=== PATIENT | female | born 1945 | race Caucasian/White ===

== ENCOUNTER 2019-01-24 04:29 | Observation (INO) | payer MEDICARE, OTHER ==
[~2019-01-24] VITALS: Ht 157.5 cm; Wt 70.3 kg
[~2019-01-24 04:29] MED LIST: ASPI-1471 PO; ESTR1; ESTR42.59; FURO20TA19 PO; LEVO25TA56; LEVO75TA68; LISI-1; LUTE1CAP6; MOM PO; ROSU5TAB8 PO
--- NOTE | 2019-01-24 04:35 | ER Report ---
History and Physical Time Seen By MD: 04:33 (DES BLAKE DO) Time Seen By MD: 06:47 (DALILA WONG DO) HPI/ROS CHIEF COMPLAINT: Abdominal pain, vomiting HISTORY OF PRESENT ILLNESS: 73-year-old female presents ambulatory to the ER complaining of abdominal pain, onset 11 PM, patient notes onset of vomiting at 1 AM. She describes crampy epigastric pain without radiation. She notes no allev iating or saturating factors. She notes no diarrhea. Patient denies fever or chills. Patient denies consumption of bad food or exposure to ill contacts. Patient reports history of multiple abdominal surgeries. REVIEW OF SYSTEMS: Respiratory: No cough, no dyspnea. Cardiovascular: No chest pain, no palpitations. Gastrointestinal: As above Musculoskeletal: No back pain. (DES BLAKE DO) HPI/ROS Please see Dr. Blake's note (DALILA WONG DO) Allergies: Coded Allergies: No Known Drug Allergies (Unverified , 01/24/19) Home Meds Reported Medications Estradiol (ESTRADIOL) 1 Mg Tablet, 1 MG PO DAILY 01/24/19 Potassium Chloride (POTASSIUM CHLORIDE) 10 Meq Capsule.er, 10 MEQ PO DAILY 01/24/19 Levothyroxine Sodium (LEVOTHYROXINE SODIUM) 50 Mcg Tablet, 50 MCG PO QDAY, TAB 01/24/19 Rosuvastatin Calcium (Rosuvastatin Calcium) 5 Mg Tablet, 1 TAB PO DAILY 01/24/19 Furosemide (FUROSEMIDE) 20 Mg Tablet, 1 TAB PO DAILY, TAB 01/24/19 Calcium Carbonate (CALCIUM) 600 Mg Tablet, 600 MG PO BID 01/24/19 Aspirin (ASPIR 81) 81 Mg Tablet.dr, 81 MG PO QDAY, TAB 01/24/19 Lutein/Zeaxanthin (Lutein-Zeaxanthin 20-1 mg Sfgl) Unknown Strength Capsule 01/11/19 Discontinued Reported Medications Aspirin (ASPIR 81) Unknown Strength Tablet.dr, PO QDAY, TAB 01/11/19 Furosemide (LASIX) Unknown Strength Tablet, PO Q8H, TAB 01/11/19 Estradiol (Estrace) 12 Gm Cream.appl, qday 12/18/11 Levothyroxine Sodium (Synthroid) 75 Mcg Tablet 12/18/11 Estradiol (Estrace) 1 Mg Tab 12/18/11 Past Medical/Surgical History Past medical history hypothyroidism, aortic valve replacement 2012 with porcine valve, hyperlipidemia, estrogen replacement (DES BLAKE DO) Reviewed Nurses Notes: Yes Old Medical Records Reviewed: Yes (DES BLAKE DO) Hx Smoking: No Hx Substance Use Disorder: No Hx Alcohol Use: No (DES BLAKE DO) Constitutional Vital Sign - Last 24 Hours 01/24/19 01/24/19 01/24/19 01/24/19 04:36 04:38 04:45 04:59 Temp 97.3 Pulse 95 61 Resp 22 B/P (MAP) 183/79 183/79 (113) 139/112 (121) Pulse Ox 96 95 O2 Delivery Room Air 01/24/19 01/24/19 01/24/19 01/24/19 05:00 05:07 05:12 05:30 Pulse 71 68 B/P (MAP) 138/65 (89) 169/76 (107) Pulse Ox 90 01/24/19 01/24/19 01/24/19 01/24/19 05:42 06:00 06:05 06:22 Pulse 83 71 B/P (MAP) 143/75 (97) 162/80 (107) Pulse Ox 97 96 01/24/19 01/24/19 01/24/19 06:30 06:35 06:47 Pulse 77 78 B/P (MAP) 148/69 (95) Pulse Ox 97 Intake and Output 01/23/19 01/23/19 01/24/19 15:00 23:00 07:00 Intake Total 1000 ml Balance 1000 ml (DALILA WONG DO) Physical Exam Vital signs stable, afebrile, pulse ox normal. Blood pressure mildly elevated General Appearance: The patient is alert, has no immediate need for airway protection and no current signs of toxicity. Eyes: Pupils equal and round no injection. Respiratory: Chest is non tender, lungs are clear to auscultation. Cardiac: regular rate and rhythm Gastrointestinal: Abdomen is soft and non tender, no masses, bowel sounds normal. Musculoskeletal: Neck: Neck is supple and non tender. Extremities have full range of motion and are non tender. Skin: No rashes or lesions. DIFFERENTIAL DIAGNOSIS: After history and physical exam differential diagnosis was considered for abdominal pain including but not limited to appendicitis, cholecystitis, gastritis and urinary tract infection. (DES BLAKE DO) Physical Exam Please see Dr. Blake's note (DALILA WONG DO) Medical Decision Making Data Points Result Diagram: 01/24/19 0440 01/24/19 0440 Laboratory Hematology Test 01/24/19 04:40 01/24/19 05:20 Red Blood Count 4.99 M/uL (4.17-5.56) Mean Corpuscular Volume 92.3 fL (80.0-96.0) Mean Corpuscular Hemoglobin 31.4 pg (26.0-33.0) Mean Corpuscular Hemoglobin Concent 34.0 g/dL (32.0-36.0) Red Cell Distribution Width 12.8 % (11.5-14.5) Mean Platelet Volume 8.7 fL (7.2-11.1) Neutrophils (%) (Auto) 75.5 % (39.4-72.5) Lymphocytes (%) (Auto) 21.4 % (17.6-49.6) Monocytes (%) (Auto) 2.7 % (4.1-12.4) Eosinophils (%) (Auto) 0.1 % (0.4-6.7) Basophils (%) (Auto) 0.3 % (0.3-1.4) Nucleated RBC Relative Count (auto) 0.0 /100WBC Neutrophils # (Auto) 12.1 K/uL (2.0-7.4) Lymphocytes # (Auto) 3.4 K/uL (1.3-3.6) Monocytes # (Auto) 0.4 K/uL (0.3-1.0) Eosinophils # (Auto) 0.0 K/uL (0.0-0.5) Basophils # (Auto) 0.1 K/uL (0.0-0.1) Nucleated RBC Absolute Count (auto) 0.00 K/uL Sodium Level 137 mmol/L (137-145) Potassium Level 3.9 mmol/L (3.5-5.0) Chloride Level 98 mmol/L (98-107) Carbon Dioxide Level 23 mmol/L (22-31) Blood Urea Nitrogen 21 mg/dl (7-18) Creatinine 1.00 mg/dl (0.52-1.04) Glomerular Filtration Rate Calc 54.1 Random Glucose 181 mg/dl (75-110) Calcium Level 9.9 mg/dl (8.4-10.2) Total Bilirubin 0.5 mg/dl (0.2-1.3) Aspartate Amino Transf (AST/SGOT) 30 U/L (0-35) Alanine Aminotransferase (ALT/SGPT) 13 U/L (0-56) Alkaline Phosphatase 105 U/L (0-126) Troponin I < 0.012 ng/ml Total Protein 8.8 g/dl (6.3-8.2) Albumin 4.9 g/dl (3.5-5.0) Amylase Level 112 U/L (0-110) Lipase 59 U/L (23-300) Urine Color Yellow Urine Clarity Clear Urine pH 8.0 pH (4.8-9.5) Urine Specific [place] 1.024 Urine Protein 30 mg/dL (NEGATIVE) Urine Glucose (UA) Negative mg/dL (NEGATIVE) Urine Ketones 80 mg/dL (NEGATIVE) Urine Blood Negative (NEGATIVE) Urine Nitrite Negative (NEGATIVE) Urine Bilirubin Negative (NEGATIVE) Urine Urobilinogen 2.0 mg/dL (0.2-1.9) Urine Leukocyte Esterase Negative (NEGATIVE) Urine RBC 2 /HPF (0-2/HPF) Urine WBC <1 /HPF (0-5/HPF) Urine Squamous Epithelial Cells Many /LPF (</=FEW) Urine Bacteria Negative /HPF (NONE-FEW) Urine Mucus None /HPF (NONE-FEW) Chemistry Test 01/24/19 04:40 01/24/19 05:20 White Blood Count 16.0 k/uL (4.5-11.0) Red Blood Count 4.99 M/uL (4.17-5.56) Hemoglobin 15.7 g/dL (12.0-16.0) Hematocrit 46.1 % (34.0-47.0) Mean Corpuscular Volume 92.3 fL (80.0-96.0) Mean Corpuscular Hemoglobin 31.4 pg (26.0-33.0) Mean Corpuscular Hemoglobin Concent 34.0 g/dL (32.0-36.0) Red Cell Distribution Width 12.8 % (11.5-14.5) Platelet Count 347 K/uL (150-450) Mean Platelet Volume 8.7 fL (7.2-11.1) Neutrophils (%) (Auto) 75.5 % (39.4-72.5) Lymphocytes (%) (Auto) 21.4 % (17.6-49.6) Monocytes (%) (Auto) 2.7 % (4.1-12.4) Eosinophils (%) (Auto) 0.1 % (0.4-6.7) Basophils (%) (Auto) 0.3 % (0.3-1.4) Nucleated RBC Relative Count (auto) 0.0 /100WBC Neutrophils # (Auto) 12.1 K/uL (2.0-7.4) Lymphocytes # (Auto) 3.4 K/uL (1.3-3.6) Monocytes # (Auto) 0.4 K/uL (0.3-1.0) Eosinophils # (Auto) 0.0 K/uL (0.0-0.5) Basophils # (Auto) 0.1 K/uL (0.0-0.1) Nucleated RBC Absolute Count (auto) 0.00 K/uL Glomerular Filtration Rate Calc 54.1 Calcium Level 9.9 mg/dl (8.4-10.2) Total Bilirubin 0.5 mg/dl (0.2-1.3) Aspartate Amino Transf (AST/SGOT) 30 U/L (0-35) Alanine Aminotransferase (ALT/SGPT) 13 U/L (0-56) Alkaline Phosphatase 105 U/L (0-126) Troponin I < 0.012 ng/ml Total Protein 8.8 g/dl (6.3-8.2) Albumin 4.9 g/dl (3.5-5.0) Amylase Level 112 U/L (0-110) Lipase 59 U/L (23-300) Urine Color Yellow Urine Clarity Clear Urine pH 8.0 pH (4.8-9.5) Urine Specific [place] 1.024 Urine Protein 30 mg/dL (NEGATIVE) Urine Glucose (UA) Negative mg/dL (NEGATIVE) Urine Ketones 80 mg/dL (NEGATIVE) Urine Blood Negative (NEGATIVE) Urine Nitrite Negative (NEGATIVE) Urine Bilirubin Negative (NEGATIVE) Urine Urobilinogen 2.0 mg/dL (0.2-1.9) Urine Leukocyte Esterase Negative (NEGATIVE) Urine RBC 2 /HPF (0-2/HPF) Urine WBC <1 /HPF (0-5/HPF) Urine Squamous Epithelial Cells Many /LPF (</=FEW) Urine Bacteria Negative /HPF (NONE-FEW) Urine Mucus None /HPF (NONE-FEW) Urinalysis Test 01/24/19 05:20 Urine Color Yellow Urine Clarity Clear Urine pH 8.0 pH (4.8-9.5) Urine Specific [place] 1.024 Urine Protein 30 mg/dL (NEGATIVE) Urine Glucose (UA) Negative mg/dL (NEGATIVE) Urine Ketones 80 mg/dL (NEGATIVE) Urine Blood Negative (NEGATIVE) Urine Nitrite Negative (NEGATIVE) Urine Bilirubin Negative (NEGATIVE) Urine Urobilinogen 2.0 mg/dL (0.2-1.9) Urine Leukocyte Esterase Negative (NEGATIVE) Urine RBC 2 /HPF (0-2/HPF) Urine WBC <1 /HPF (0-5/HPF) Urine Squamous Epithelial Cells Many /LPF (</=FEW) Urine Bacteria Negative /HPF (NONE-FEW) Urine Mucus None /HPF (NONE-FEW) (DALILA WONG DO) EKG/Imaging EKG Interpretation 12 lead EK 453 Rhythm: normal sinus rhythm [place]: normal QRS: Old anterior Q waves ST segments: normal, no evidence of ischemia or dysrhythmia (DES BLAKE DO) ED Course/Re-evaluation Clinical Indication for ER IV: Hydration, IV Access ED Course Patient was admitted to an examination room. H&P was done. The differential diagnoses was considered. Patient with approximately 5-6 hours of severe ab dominal pain. She's had vomiting for 5 hours of that. She is here with dry heaves mostly. She describes crampy epigastric pain 8/10 without radiation. She has history of multiple abdominal surgeries. Patient's treated with IV Zofran, fluids and fentanyl. Her pain is controlled briefly for an hour and then returns. She's given formal grams of morphine for additional pain relief. Her EKG is unremarkable. Her troponin returns unremarkable. Her white blood cell count returned 16,000 without other significant findings. Patient continues to have recurrence and severity of her pain. A CT scan of the abdomen and pelvis with IV contrast is ordered. Decision to Disposition Date: Jan 24, 2019 Decision to Disposition Time: 05:21 (DES BLAKE DO) ED Course I assumed patient care from Dr. Blake at 7:[address] imaging report was relayed to me from Saira and revealed a small bowel obstruction with a transition point in the upper pelvis. I discussed the patient with Dr. Bazzi who accepted the patient to general surgery service. I updated the patient regarding his findings. Patient was stable at time of admission, she is placed on normal saline maintenance fluids, when necessary analgesics and antiemetics. Decision to Disposition Date: Jan 24, 2019 Decision to Disposition Time: 07:25 (DALILA WONG DO) Depart Departure Latest Vital Signs Vital Signs Date Time Temp Pulse Resp B/P (MAP) Pulse Ox O2 Delivery O2 Flow Rate FiO2 01/24/19 06:47 78 01/24/19 06:35 97 01/24/19 06:30 148/69 (95) 01/24/19 04:36 97.3 22 Room Air (DALILA WONG DO) Impression: Primary Impression: Small bowel obstruction Additional Impressions: Abdominal pain Vomiting Condition: Improved Disposition: Admitted from ER Problem Qualifiers Additional Impressions: Abdominal pain Abdominal location: epigastric Qualified Codes: R10.13 - Epigastric pain Vomiting Vomiting type: unspecified Vomiting Intractability: unspecified Nausea presence: unspecified Qualified Codes: R11.10 - Vomiting, unspecified DES BLAKE DO Jan 24, 2019 04:35 DALILA WONG DO Jan 24, 2019 06:47
[2019-01-24] MEDS ORDERED: NS(*) 0.9% 1000 ML BAG 1,000 ML IV ONE (04:37)
[2019-01-24] MEDS ORDERED: fentaNYL CITR 100 MCG/2 ML AMP IVP ONE (04:40)
[2019-01-24] MEDS ORDERED: ONDANSETRON 4 MG/2 ML VIAL IVP ONE (04:40)
[2019-01-24] MEDS ORDERED: ASPI-1471 PO (05:02)
[2019-01-24] MEDS ORDERED: POTA10CA40 PO (05:02)
[2019-01-24] MEDS ORDERED: ROSU5TAB3 PO (05:02)
[2019-01-24] MEDS ORDERED: FURO-45 PO (05:02)
[2019-01-24] MEDS ORDERED: LEVO50TA86 PO (05:02)
[2019-01-24] MEDS ORDERED: CALC600T63 PO (05:02)
[2019-01-24] MEDS ORDERED: ESTR-33 PO (05:02)
[2019-01-24 05:03] LABS: PLATELET COUNT, AUTOMATED 347 K/uL (150-450)
--- NOTE | 2019-01-24 05:17 | EKG ---
FACILITY: [facility] - [place] PATIENT NAME: DANNY BOWERS : [id number] MR: [id number] V: [id number] EXAM DATE: ORDERING PHYSICIAN: DES ESCAMILLA TECHNOLOGIST: ROSSY Test Reason : ABD PAIN VOMITING Blood Pressure : / mmHG Vent. Rate : 064 BPM Atrial Rate : 064 BPM P-R Int : 158 ms QRS Dur : 080 ms QT Int : 468 ms P-R-T Axes : 055 013 034 degrees QTc Int : 482 ms Normal sinus rhythm Anteroseptal infarct , age undetermined Abnormal ECG No previous ECGs available Confirmed by Herb Lindsey ([id number]) on 01/24/2019 6:48:54 AM Referred By: Confirmed By:Herb Van
[2019-01-24] MEDS ORDERED: MORPHINE 4 MG/ML SDV IVP ONE (05:40)
[2019-01-24] MEDS ORDERED: IOPAMIDOL 76% 150 ML INFUS BTL 150 ML ONE (06:13)
--- NOTE | 2019-01-24 06:54 | RADIOLOGY IMAGING REPORT ---
FACILITY: [facility] - [place] PATIENT NAME: Joanne Munoz : 1945 MR: [id number] V: [id number] EXAM DATE: ORDERING PHYSICIAN: DES ESCAMILLA TECHNOLOGIST: Location: [facility] Patient: Joanne Munoz : 1945 Visit/Account:[id number] Date of Sevice: 01/24/2019 CT ABDOMEN PELVIS W/ CON HISTORY: Severe abdominal pain. Elevated white cell count. Vomiting x 1. History of endometriosis and prior small bowel obstruction. COMPARISON: None. TECHNIQUE: Axial images were obtained from the lung bases through the symphysis pubis with intravenou s contrast. Sagittal and coronal reformats were performed. One of the following dose optimization techniques was utilized in the performance of this exam: Autom ated exposure control; adjustment of the mA and/or kV according to the patient's size; or use of an i terative reconstruction technique. Specific details can be referenced in the facility's radiology CT exam operational policy. CONTRAST: 75 mL IV [id number]. FINDINGS: Lower chest: There is minimal atelectasis. Liver: Liver is diffusely decreased in attenuation, compatible with hepatic steatosis. Gallbladder/biliary: Cholecystectomy. No intrahepatic or extrahepatic ductal dilation. Pancreas: Moderate to severe atrophy. Spleen: Normal size. There are calcified granulomas. Adrenals: Normal. Kidneys/ureters/bladder: There are too small to characterize low attenuating lesions within both kidn eys that statistically are likely to represent renal cysts. The ureters and the bladder are normal. GI/mesentery/peritoneal cavity: There is a small type I hiatal hernia. There are fluid-filled small b owel loops that are at the upper limits of normal for size. There is a transition in the anterior upp er pelvis just to the left of midline (axial image 102 series 2, coronal image 24, and axial image 72 ). Normal bowel enhancement. No bowel wall thickening. There is a small amount of free fluid in the m esentery adjacent to the distended small bowel loops. There are sigmoid diverticula. No diverticulit is. The appendix is normal. No free air. Vessels: There is mild atherosclerotic disease. No aneurysm. No dissection. Nodes: Normal. Pelvis: Uterus is absent. Ovaries are not identified. There are phleboliths. Bones/vertebra/soft tissues: There is severe degenerative disc disease and degenerative facet disease from L2-3 through L5-S1 with associated endplate sclerosis. There are milder degenerative changes at other levels. There is moderate spinal canal stenosis at L2-3. There is mild spinal canal stenosis a t L3-4 and at L4-5. There is rightward curvature of the lumbar spine. There are sternal closure wires . IMPRESSION: 1. Developing/early small bowel obstruction with transition in the upper pelvis. 2. Hepatic steatosis. It can progress to steatohepatitis and eventual cirrhosis. 3. Small type I hiatal hernia. 4. Degenerative changes of the spine cause moderate spinal canal stenosis at L2-3 and mild spinal can al stenosis at L3-4 and L4-5. Findings of small bowel obstruction were discussed by phone with DR. WONG on 01/24/2019 6:45 AM. Report Dictated By: Cece Trinh at 01/24/2019 6:32 AM Report E-Signed By: Cece Trinh at 01/24/2019 6:50 AM WSN:[id number]
[2019-01-24] MEDS ORDERED: ONDANSETRON 4 MG/2 ML VIAL IVP PRN (07:20)
[2019-01-24] MEDS: NS(*) 0.9% 1000 ML BAG 1,000 ML IV SCH ×2 (07:35→13:54)
[2019-01-24 08:11] VITALS: BP 140/57
[2019-01-24 09:39] VITALS: Ht 157.5 cm; Wt 70.3 kg
[2019-01-24] MEDS ORDERED: NS(*) 0.9% 500 ML BAG 500 ML IV ONE (10:10)
[2019-01-24] MEDS ORDERED: MAGN200T3 PO (10:22)
[2019-01-24] MEDS ORDERED: MULT1CAP59 PO (10:22)
[2019-01-24] MEDS ORDERED: ACET650T38 PO (10:22)
[2019-01-24] MEDS ORDERED: LUTE1CAP6 PO (10:22)
[2019-01-24 11:17] VITALS: BP 122/51
--- NOTE | 2019-01-24 11:41 | Medical Nutrition Therapy ---
Nutrition Anthropometrics Height (Inches): 62.00 Height (Calculated Centimeters: 157.413607 Weight (Pounds): 155 Weight (Calculated Kilograms): 70.307 BMI: 28.3 Kael Nutrition Score: Kael Nutrition Risk Score: Dietary Referral Nutrition Risk Factors: Nutrition Risk Comment: Physical Findings Physical Appearance: Overweight BMI 25-29 Skin Appearance Skin Appearance: Edema Edema Location Modifier: Edema Location: Type of Edema: Degree of Edema: Gastrointestinal Symptoms GI Symtoms: Tube Present: Bowel Sounds: Recent Bowel Pattern: Stool Characteristics: Nutritional Diagnosis Nutritional Risk Acuity 1: GI Obstruction Nutritional Risk Acuity 4: Age Related Past Medical History: Multiple abdominal surgeries. Nutritional Acuity: 1-High Nutrition Diagnosis: Inadequate Food Intake Nutrition Etiology: Physiological Causes Nutrition Problem/Etiology/Sym: Inadequate food intake related to physiological causes as evidenced by dx of GI obstruction and NPO day 1. Energy Requirement: 1520 (MSJ, 1.1 TEF, 1.2 AF) Protein Requirement: 70 (1g AA/kg of BW) Fluid Requirement: 1520 (1ml/kcal) Diet Type: NPO (Nothing by Mouth) Nutrition Intervention: Incr diet as tolerated Nutrition Monitoring & Eval RD Patient Assessment Time: [address] Assessment Type: RD Assessment Patient Nutrition Acuity: 1-High Follow Up Date: Jan 27, 2019 Nutritional Comment: 01/24: Pt admitted to ER for abdmoninal pain and vomiting. Pt dx with small bowel obstruction. Pt has hx of multiple abdominal surgeries. Pt has elevated BUN (21), RBG (181), lactate (3.3) total protein (8.8), and amylase (112). Pt is NPO day 1. Cotinue monitoring and increase diet as able. -ZANDER MOSES Jan 24, 2019 09:53
--- NOTE | 2019-01-24 12:25 | Gen Surgery History & Physical ---
History of Present Illness Chief Complaint abd pain, vomiting. History of Present Illness 73 yo f with diffuse abd pain since last night. mult episodes of vomiting. normal bm yesterday morning. no flatus since then. had open cholecystectomy, hysterectomy and endometriosis many yrs ago. had sbo many yrs ago that resolved with conservative mgmnt. good uop. History Home Meds Reported Medications Acetaminophen (ACETAMINOPHEN ER) 650 Mg Tablet.er, 2 TAB PO Q8H PRN for PAIN, TAB 01/24/19 Magnesium Oxide (Mag-Oxide) 200 Mg Magnesium Tablet, 1 TAB PO QDAY 01/24/19 Lutein/Zeaxanthin (Lutein-Zeaxanthin 20-1 mg Sfgl) 20 Mg-1,000 Mcg Capsule, 1 CAP PO QDAY 01/24/19 Multivitamin (MULTIVITAMINS) 1 Each Capsule, 1 EACH PO QDAY, CAPSULE 01/24/19 Estradiol (ESTRADIOL) 1 Mg Tablet, 1 MG PO DAILY 01/24/19 Potassium Chloride (POTASSIUM CHLORIDE) 10 Meq Capsule.er, 10 MEQ PO DAILY 01/24/19 Levothyroxine Sodium (LEVOTHYROXINE SODIUM) 50 Mcg Tablet, 50 MCG PO QDAY, TAB 01/24/19 Rosuvastatin Calcium (Rosuvastatin Calcium) 5 Mg Tablet, 1 TAB PO DAILY 01/24/19 Furosemide (FUROSEMIDE) 20 Mg Tablet, 1 TAB PO DAILY, TAB 01/24/19 Calcium Carbonate (CALCIUM) 600 Mg Tablet, 600 MG PO BID 01/24/19 Aspirin (ASPIR 81) 81 Mg Tablet.dr, 81 MG PO QDAY, TAB 01/24/19 Discontinued Reported Medications Lutein/Zeaxanthin (Lutein-Zeaxanthin 20-1 mg Sfgl) Unknown Strength Capsule 01/11/19 Aspirin (ASPIR 81) Unknown Strength Tablet.dr, PO QDAY, TAB 01/11/19 Furosemide (LASIX) Unknown Strength Tablet, PO Q8H, TAB 01/11/19 Estradiol (Estrace) 12 Gm Cream.appl, qday 12/18/11 Levothyroxine Sodium (Synthroid) 75 Mcg Tablet 12/18/11 Estradiol (Estrace) 1 Mg Tab 12/18/11 Allergies: Coded Allergies: No Known Drug Allergies (Unverified , 01/24/19) Patient History: FH: bowel obstruction MOTHER FH: cardiovascular disease FATHER Review of Systems Constitutional: Other (10 pt ros neg except per hpi) Exam General Appearance: Alert, Awake, No Acute Distress Neuro: No Gross deficits Eyes: Other (per, eomi) ENT: Moist Mucous Membranes Neck: No Masses Cardiovascular: Other (reg rate) Respiratory: No Respiratory Distress GI: Other (soft, minimal ttp, mild distention, well-healed surg scars) Extremities: Other (no pitting edema) Integumentary: Skin Intact without Lesion / Mass Psych: Alert & Oriented X3, Appropriate Mood & Affect Medical Decision Making Data Points Result Diagram: 01/24/1943901/24/19439 Assessment and Plan Problems: (1) Small bowel obstruction Status: Acute Assessment & Plan: 01/24/19: npo, ivf, serial exams, ngt if pt vomits again, gastrografin if sbo does not resolve by tomorrow, surgery if needed. Copies to: MIRELLA LINDSAY ; Venous Thromboembolism Antithrombotics Is Pt On Any Antithrombotics?: No ESTEFANIA RANDALL Jan 24, 2019 12:25
[2019-01-24] MEDS ORDERED: ENOXAPARIN 40 MG/0.4ML SYR SC SCH (13:30)
[2019-01-24] MEDS ORDERED: MORPHINE 2 MG/ML SYR IVP PRN (13:30)
[2019-01-24 15:04] VITALS: BP 121/53
[2019-01-24 20:26] VITALS: BP 128/51
[2019-01-24 23:43] VITALS: BP 101/48
[2019-01-25] MEDS: NS(*) 0.9% 1000 ML BAG 1,000 ML IV SCH (00:03)
[2019-01-25 04:05] VITALS: BP 128/57
[2019-01-25 05:51] LABS: PLATELET COUNT, AUTOMATED 201 K/uL (150-450)
--- NOTE | 2019-01-25 06:03 | RADIOLOGY IMAGING REPORT ---
FACILITY: PATIENT NAME: Joanne Munoz : 1945 MR: [id number] V: [id number] EXAM DATE: [id number] ORDERING PHYSICIAN: ESTEFANIA RANDALL TECHNOLOGIST: Location: [facility] - [place] Patient: Joanne Munoz : 1945 Visit/Account:[id number] Date of Sevice: 01/25/2019 INDICATION: sbo EXAM DATE: 01/25/2019 5:00 AM COMPARISON: CT yesterday. FINDINGS: Single supine AP image of the abdomen. The lungs are well-expanded and clear. No pleural effusion or pneumothorax. Heart size is normal. There is a single loop of small bowel in left lower quadrant that is air-filled and measures 3.2 cm i n diameter. No pneumatosis, pneumoperitoneum or portal venous gas. No evidence of large volume ascit es or mass. Surgical clips over the left hemipelvis. Cholecystectomy clips. No acute osseous abnormality. IMPRESSION: Single dilated loop of small bowel in the left lower quadrant could indicate persistent e shawna or partial obstruction. Many of the small bowel loops on the prior examination were fluid-fille d and may be difficult to on a single supine radiograph. Report Dictated By: Glynn Rain MD at 01/25/2019 5:55 AM Report E-Signed By: Glynn Rain MD at 01/25/2019 5:59 AM WSN:[id number]
--- NOTE | 2019-01-25 07:20 | General Surgery Progress Note ---
Subjective Progress Notes Subjective +flatus. small bm. bloody nose. Physical Exam Vital Signs Date Time Temp Pulse Resp B/P (MAP) Pulse Ox O2 Delivery O2 Flow Rate FiO2 01/25/19 04:05 97.9 56 128/57 (80) 94 Nasal Cannula 0.5 01/24/19 23:43 16 Intake and Output 01/25/19 07:00 Intake Total 2000 ml Balance 2000 ml Intake IV Total 2000 ml # Voids 3 # Bowel Movements 1 General Appearance: No Acute Distress GI: Other (abd soft) Result Diagram: 01/25/19 0538 01/25/1938 Assessment and Plan Problems: (1) Small bowel obstruction Status: Acute Assessment & Plan: 01/24/19: npo, ivf, serial exams, ngt if pt vomits again, gastrografin if sbo does not resolve by tomorrow, surgery if needed. 01/25/19: doing well. sbo resolving. clears. pt ambulating. bloody nose. stop lovenox. Exam Sepsis Risk: No Definite Risk ESTEFANIA RANDALL Jan 25, 2019 07:20
[2019-01-25 07:49] VITALS: BP 130/76
[2019-01-25 11:24] VITALS: BP 138/67
[2019-01-25 14:26] VITALS: BP 152/64
--- NOTE | 2019-01-25 17:42 | Hospitalist Depart ---
Discharge Summary Reason for Hosp/Final Diag: (1) Small bowel obstruction Status: Acute Hospital Course & Plan: 01/24/19: npo, ivf, serial exams, ngt if pt vomits again, gastrografin if sbo does not resolve by tomorrow, surgery if needed. 01/25/19: doing well. sbo resolving. clears. pt ambulating. bloody nose. stop lo venox. mult bms. surya food. d/c home. Departure Weight (Pounds): 155 Result Diagram: 01/25/1953701/25/19537 Condition: Improved Discharge: Home Discharge Instructions Home Meds Reported Medications Acetaminophen (ACETAMINOPHEN ER) 650 Mg Tablet.er, 2 TAB PO Q8H PRN for PAIN, TAB 01/24/19 Magnesium Oxide (Mag-Oxide) 200 Mg Magnesium Tablet, 1 TAB PO QDAY 01/24/19 Lutein/Zeaxanthin (Lutein-Zeaxanthin 20-1 mg Sfgl) 20 Mg-1,000 Mcg Capsule, 1 CAP PO QDAY 01/24/19 Multivitamin (MULTIVITAMINS) 1 Each Capsule, 1 EACH PO QDAY, CAPSULE 01/24/19 Estradiol (ESTRADIOL) 1 Mg Tablet, 1 MG PO DAILY 01/24/19 Potassium Chloride (POTASSIUM CHLORIDE) 10 Meq Capsule.er, 10 MEQ PO DAILY 01/24/19 Levothyroxine Sodium (LEVOTHYROXINE SODIUM) 50 Mcg Tablet, 50 MCG PO QDAY, TAB 01/24/19 Rosuvastatin Calcium (Rosuvastatin Calcium) 5 Mg Tablet, 1 TAB PO DAILY 01/24/19 Furosemide (FUROSEMIDE) 20 Mg Tablet, 1 TAB PO DAILY, TAB 01/24/19 Calcium Carbonate (CALCIUM) 600 Mg Tablet, 600 MG PO BID 01/24/19 Aspirin (ASPIR 81) 81 Mg Tablet.dr, 81 MG PO QDAY, TAB 01/24/19 Discontinued Reported Medications Lutein/Zeaxanthin (Lutein-Zeaxanthin 20-1 mg Sfgl) Unknown Strength Capsule 01/11/19 Aspirin (ASPIR 81) Unknown Strength Tablet., PO QDAY, TAB 01/11/19 Furosemide (LASIX) Unknown Strength Tablet, PO Q8H, TAB 01/11/19 Estradiol (Estrace) 12 Gm Cream.appl, qday 12/18/11 Levothyroxine Sodium (Synthroid) 75 Mcg Tablet 12/18/11 Estradiol (Estrace) 1 Mg Tab 12/18/11 Diet: Regular Activity: As Tolerated Special Instructions: f/u prn Venous Thromboembolism Antithrombotics Is Pt On Any Antithrombotics?: ESTEFANIA Batista Jan 25, 2019 17:42
== END 2019-01-25 17:45 | disposition home or self-care (01) ==
LOC: ER 04:55 → INTOOBSV 07:29 → MED 07:29 → EDBEDREQTM 07:30 → EDBEDREQ 07:30 → EDBEDREQSVC 07:30
PROVIDERS: ADMIT Surgery; ATTEND Surgery
DX: K56.609 Unspecified intestinal obstruction, unspecified as to partial versus complete obstruction (principal); Z79.899 Other long term (current) drug therapy
CPT/HCPCS: 36415; 74018; 74177; 81001; 82150; 83605; 83690; 84484; 85025; 93005; 96361; 96372; 96374; 96375; 99285; G0378; J1650; J2270; J2405; J3010; J7030; Q9967; 82040; 82247; 82310; 82374; 82435; 82565; 82947; 84075; 84132; 84155; 84295; 84450; 84460; 84520

== ENCOUNTER 2019-02-22 00:43 | Day surgery (SDC) | payer MEDICARE, OTHER ==
[2019-01-24 09:39] VITALS: Ht 158.8 cm; Wt 68.0 kg
[~2019-02-22] VITALS: Ht 158.8 cm; Wt 68.0 kg
[~2019-02-22 00:43] MED LIST changes: +ACET650T38 PO; +CALC600T63 PO; +ESTR-33 PO; +FURO-45 PO; +LEVO50TA86 PO; +LUTE1CAP6 PO; +MAGN200T3 PO; +MULT1CAP59 PO; +POTA10CA40 PO; +ROSU5TAB3 PO
[2019-02-22] MEDS ORDERED: PROPOFOL EMUL(*) 10MG/ML 20 ML 20 ML ONE ×2 (07:06→10:10)
[2019-02-22 08:47] VITALS: BP 145/72
[2019-02-22] MEDS ORDERED: NORMOSOL R SOLN(*) 1000 ML BAG 1,000 ML IV PRN (08:50)
[2019-02-22] MEDS ORDERED: LIDOCAINE/SOD BICARB 8.4% SYR ID ONE (08:50)
[2019-02-22] MEDS ORDERED: MIDAZOLAM 2 MG/2 ML VIAL IVP PRN (08:50)
[2019-02-22] MEDS ORDERED: FAMOTIDINE 20 MG TAB PO ONE (08:50)
[2019-02-22 10:30] VITALS: BP 145/69
--- NOTE | 2019-02-22 10:38 | Short(Outpt) Discharge Summary ---
Discharge Summary Reason for Hosp/Final Diag: (1) Fecal occult blood test positive Hospital Course & Plan: pt presented for colonoscopy. she tolerated the procedure well. she will be discharged home when criteria met. Discharge Instructions Home Meds Reported Medications Acetaminophen (ACETAMINOPHEN ER) 650 Mg Tablet.er, 2 TAB PO BID PRN for PAIN, TAB 01/24/19 Magnesium Oxide (Mag-Oxide) 200 Mg Magnesium Tablet, 250 MG PO QDAY 01/24/19 Lutein/Zeaxanthin (Lutein-Zeaxanthin 20-1 mg Sfgl) 20 Mg-1,000 Mcg Capsule, 1 CAP PO QDAY 01/24/19 Multivitamin (MULTIVITAMINS) 1 Each Capsule, 1 EACH PO QDAY, CAPSULE 01/24/19 Estradiol (ESTRADIOL) 1 Mg Tablet, 1 MG PO DAILY 01/24/19 Potassium Chloride (POTASSIUM CHLORIDE) 10 Meq Capsule.er, 10 MEQ PO DAILY 01/24/19 Levothyroxine Sodium (LEVOTHYROXINE SODIUM) 50 Mcg Tablet, 50 MCG PO QDAY, TAB 01/24/19 Rosuvastatin Calcium (Rosuvastatin Calcium) 5 Mg Tablet, 1 TAB PO DAILY 01/24/19 Furosemide (FUROSEMIDE) 20 Mg Tablet, 1 TAB PO DAILY, TAB 01/24/19 Calcium Carbonate (CALCIUM) 600 Mg Tablet, 600 MG PO BID 01/24/19 Aspirin (ASPIR 81) 81 Mg Tablet.dr, 81 MG PO QDAY, TAB 01/24/19 Diet: Regular Activity: As Tolerated Special Instructions: repeat colonoscopy as needed. ESTEFANIA RANDALL Feb 22, 2019 10:38
[2019-02-22 11:01] VITALS: BP 131/62
[2019-02-22 11:33] VITALS: BP 119/58
[2019-02-22 11:34] VITALS: BP 138/68
[2019-02-22 11:37] VITALS: BP 129/70
== END 2019-02-22 11:45 | disposition home or self-care (01) ==
LOC: OR 00:43
PROVIDERS: ATTEND Surgery
DX: K92.2 Gastrointestinal hemorrhage, unspecified (principal); K64.4 Residual hemorrhoidal skin tags
CPT/HCPCS: 00811; 45378; J2704